=== PATIENT | male | born 1960 | race Caucasian/White ===

== ENCOUNTER 2019-04-19 05:50 | Inpatient (IN) | payer MEDICAID ==
[~2019-04-19] VITALS: Ht 203.2 cm; Wt 159.1 kg
[~2019-04-19 05:50] MED LIST: ASPI81TA44 PO; ATOR10TA87 PO; CLOP75TA33 PO; COU5T PO; FURO20TA4 PO; GLIP10TA11 PO; METO100T7 PO; NITR0.4T51 SL; VALS160T2 PO
[2019-04-19] MEDS ORDERED: vancomycin/NS 1 GM ADD-VANTAGE 250 ML IV ONE (06:20)
[2019-04-19] MEDS ORDERED: TETanus/Pertussis (Acell)/Diphther VAC/PF (Tdap-Adult) 0.5ml syringe IM ONE (06:20)
[2019-04-19] MEDS ORDERED: CefTRIAXone 2gm/D5W 50ml 50 ML IV ONE (06:20)
[2019-04-19 07:39] LABS: BASOPHILS # (AUTO) 0.1 X10'3 (0-0.2); BASOPHILS % (AUTO) 0.9 % (0-1); EOSINOPHILS # (AUTO) 0.1 X10'3 (0-0.9); EOSINOPHILS % (AUTO) 1.4 % (0-6); HEMATOCRIT 45.4 % (42.0-52.0); HEMOGLOBIN 15.4 g/dl (14.0-17.9); LYMPHOCYTES # (AUTO) 0.7 X10'3 (1.1-4.8); LYMPHOCYTES % (AUTO) 7.4 % (21-51); MEAN CORPUSCULAR HEMOGLOBIN 30.5 PG (27.0-31.0); MEAN CORPUSCULAR HGB CONC 33.9 g/dL (33.0-36.5); MEAN CORPUSCULAR VOLUME 90.1 FL (78-98); MEAN PLATELET VOLUME 8.6 FL (7.4-10.4); MONOCYTES # (AUTO) 0.7 X10'3 (0-0.9); MONOCYTES % (AUTO) 7.6 % (2-12); NEUTROPHILS # (AUTO) 7.3 X10'3 (1.8-7.7); NEUTROPHILS % (AUTO) 82.7 % (42-75); PLATELET COUNT 220 X10'3 (140-440); RED BLOOD COUNT 5.04 X10'6 (4.70-6.10); RED CELL DISTRIBUTION WIDTH 15.7 % (11.5-14.5); WHITE BLOOD COUNT 8.9 X10'3 (4.5-11.0)
[2019-04-19 07:45] LABS: ALANINE AMINOTRANSFERASE 21 U/L (12-78); ALBUMIN 3.2 G/DL (3.4-5.0); ALBUMIN/GLOBULIN RATIO 0.7 (1.1-1.5); ALKALINE PHOSPHATASE 116 IU/L (46-116); ANION GAP 11 (8-16); ASPARTATE AMINO TRANSFERASE 13 U/L (10-37); BLOOD UREA NITROGEN 21 MG/DL (7-18); BUN/CREATININE RATIO 11.7 (5.4-32.0); CALCIUM 8.8 MG/DL (8.5-10.1); CHLORIDE 101 MMOL/L (99-107); CREATININE 1.79 MG/DL (0.60-1.10); GLUCOSE 385 MG/DL (70-104); MAGNESIUM 2.1 MG/DL (1.5-2.4); POTASSIUM 4.1 MMOL/L (3.5-5.1); SODIUM 136 MMOL/L (135-145); TOTAL CARBON DIOXIDE 24.5 MMOL/L (24-32); TOTAL PROTEIN 7.8 G/DL (6.4-8.2); eGFR 39 ML/MIN
--- NOTE | 2019-04-19 07:56 | NUR ---
Obtained pictures to wounds on BLE,wound culture obtained to left alejo wound noted with pus,cleansed with ns covered with non aderent dressing,kerlix and sharon bandage.vancomycin running at this time.Patient comfortable.
[2019-04-19 08:06] LABS: BILIRUBIN,TOTAL 0.9 MG/DL (0.1-1.0)
[2019-04-19] MEDS ORDERED: CefTRIAXone/D5W-Rocephin 1gm 50 ML IV SCH (09:00)
[2019-04-19] MEDS ORDERED: morphine 2 MG/ML inj. syringe IV PRN ×2 (09:00)
[2019-04-19] MEDS ORDERED: acetaminophen 325mg tablet PO PRN (09:00)
[2019-04-19] MEDS ORDERED: HYDROcodone/acetaminophen 5mg/325mg tablet PO PRN (09:00)
[2019-04-19] MEDS ORDERED: vancomycin/NS 1 GM ADD-VANTAGE 250 ML IV SCH (09:00)
[2019-04-19] MEDS ORDERED: HYDROcodone/acetaminophen 10/325mg tab PO PRN (09:00)
[2019-04-19] MEDS ORDERED: ondansetron/PF 4mg/2ml inj IV PRN (09:00)
[2019-04-19] MEDS ORDERED: mag hydrox/Alum hydrox/simeth 30ml oral suspension PO PRN (09:00)
[2019-04-19] MEDS ORDERED: magnesium hydroxide 30ml (MOM) UD suspension PO PRN (09:00)
[2019-04-19] MEDS ORDERED: POTA8TAB8 PO (10:35)
[2019-04-19] MEDS ORDERED: ATOR10TA70 PO (10:35)
[2019-04-19] MEDS ORDERED: LOSA100T57 PO (10:35)
[2019-04-19] MEDS ORDERED: FURO40TA4 PO (10:35)
[2019-04-19] MEDS ORDERED: WARF-55 PO (10:35)
[2019-04-19] MEDS ORDERED: CLOP75TA35 PO (10:35)
[2019-04-19] MEDS ORDERED: GLIM4TAB4 PO (10:35)
[2019-04-19] MEDS ORDERED: METO-395 PO (10:35)
[2019-04-19] MEDS ORDERED: AMIO200T61 PO (10:36)
[2019-04-19] MEDS ORDERED: dextrose ORAL solution 15 GM/59 ML bottle PO PRN ×2 (11:00)
[2019-04-19] MEDS ORDERED: dextrose 50%-water 50ml dispensing syringe IV PRN ×2 (11:00)
[2019-04-19] MEDS ORDERED: glucagon, human recombinant 1mg kit SUBCUT PRN (11:00)
[2019-04-19] MEDS ORDERED: MESSAGE TO PHARMACY PO ONE (11:00)
[2019-04-19] MEDS: losartan 50mg tablet PO SCH (11:33)
--- NOTE | 2019-04-19 15:15 | NUR ---
Patient in room [facility]TH[facility] 4011. I have received report from Dimitrios BLAKE and had the opportunity to ask questions and assume patient care.
[2019-04-19 15:45] VITALS: BP 158/79
[2019-04-19 18:00] VITALS: BP 163/83
--- NOTE | 2019-04-19 18:41 | NUR ---
Problems reprioritized. Patient report given, questions answered & plan of care reviewed with Javed BLAKE.
[2019-04-19] MEDS: lactobacillus rhamnosus 10,000 MMU CELLS/CAPSULE PO SCH (19:28)
[2019-04-19] MEDS: amiodarone 200mg tablet PO SCH (19:28)
[2019-04-19] MEDS: potassium chloride 8mEq ER tablet PO SCH (19:28)
[2019-04-19] MEDS: insulin Lispro (HumaLOG) vial - multi-dose SQ SCH (19:34)
[2019-04-19] MEDS ORDERED: warfarin 5mg tablet PO ONE (21:00)
[2019-04-19 22:00] VITALS: BP 157/73
[2019-04-19] MEDS: insulin glargine (Lantus) pen - multi-dose SQ SCH (22:03)
[2019-04-19] MEDS ORDERED: nicotine prolacrilex 2mg gum BC PRN (23:20)
[2019-04-20 06:00] VITALS: BP 176/81
[2019-04-20 07:21] LABS: ALBUMIN 3.1 G/DL (3.4-5.0); ANION GAP 10 (8-16); BLOOD UREA NITROGEN 17 MG/DL (7-18); BUN/CREATININE RATIO 11.1 (5.4-32.0); CALCIUM 8.6 MG/DL (8.5-10.1); CHLORIDE 105 MMOL/L (99-107); CREATININE 1.53 MG/DL (0.60-1.10); GLUCOSE 127 MG/DL (70-104); POTASSIUM 4.5 MMOL/L (3.5-5.1); SODIUM 140 MMOL/L (135-145); TOTAL CARBON DIOXIDE 24.8 MMOL/L (24-32); eGFR 47 ML/MIN
[2019-04-20 07:25] LABS: BASOPHILS # (AUTO) 0.1 X10'3 (0-0.2); BASOPHILS % (AUTO) 0.6 % (0-1); EOSINOPHILS # (AUTO) 0.3 X10'3 (0-0.9); HEMATOCRIT 43.8 % (42.0-52.0); HEMOGLOBIN 14.7 g/dl (14.0-17.9); LYMPHOCYTES % (AUTO) 11.1 % (21-51); MEAN CORPUSCULAR HEMOGLOBIN 30.4 PG (27.0-31.0); MEAN CORPUSCULAR HGB CONC 33.6 g/dL (33.0-36.5); MEAN CORPUSCULAR VOLUME 90.6 FL (78-98); MEAN PLATELET VOLUME 8.2 FL (7.4-10.4); MONOCYTES # (AUTO) 0.7 X10'3 (0-0.9); MONOCYTES % (AUTO) 8.3 % (2-12); NEUTROPHILS # (AUTO) 6.7 X10'3 (1.8-7.7); PLATELET COUNT 218 X10'3 (140-440); RED BLOOD COUNT 4.84 X10'6 (4.70-6.10); RED CELL DISTRIBUTION WIDTH 15.7 % (11.5-14.5); WHITE BLOOD COUNT 8.7 X10'3 (4.5-11.0)
[2019-04-20] MEDS: lactobacillus rhamnosus 10,000 MMU CELLS/CAPSULE PO SCH ×2 (08:52→20:50)
[2019-04-20] MEDS: atorvastatin 10mg tablet PO SCH (08:52)
[2019-04-20] MEDS: furosemide 40mg tablet PO SCH (08:52)
[2019-04-20] MEDS: clopidogrel 75mg tablet PO SCH (08:52)
[2019-04-20] MEDS: amiodarone 200mg tablet PO SCH ×2 (08:53→20:50)
[2019-04-20] MEDS: potassium chloride 8mEq ER tablet PO SCH ×2 (08:53→20:44)
[2019-04-20] MEDS: losartan 50mg tablet PO SCH (08:53)
[2019-04-20] MEDS: metoprolol succinate 25mg (24-HOUR) SR. Tablet PO SCH (08:53)
[2019-04-20] MEDS: CefTRIAXone/D5W-Rocephin 1gm 50 ML IV SCH (08:54)
[2019-04-20] MEDS: insulin Lispro (HumaLOG) vial - multi-dose SQ SCH ×3 (10:45→19:50)
--- NOTE | 2019-04-20 12:17 | NUR ---
DM Consult: A1C 9.5. Pt admit w/ LLE wound s/p fall from WC. A1C 8.1 on December admit this year. Pt declined verbal DM ed; does report only takes glipizide for DM management. Written DM handout w/ RD contact information provided. RD encouraged f/u w/ PCP for better meal coverage given A1C and DX. Pt PO 100% meals. Double proteins TIDWM added; dietary notified. Addendum: 04/20/19 at [address] Amended: Links added.
[2019-04-20] MEDS: metroNIDAZOLE 500mg tablet PO SCH ×2 (14:53→20:50)
[2019-04-20 18:00] VITALS: BP 178/86
[2019-04-20] MEDS ORDERED: warfarin 3mg tablet PO ONE (21:00)
[2019-04-20] MEDS: insulin glargine (Lantus) pen - multi-dose SQ SCH (21:00)
[2019-04-20 22:00] VITALS: BP 169/101
--- NOTE | 2019-04-20 22:24 | NUR ---
REPORT REC'D FROM LOU HYDE. PT HAD PICTURES TAKEN UPON ADMISSION, LESS THAN 24HRS. WOC CONSULT IN PLACE.
[2019-04-21 02:00] VITALS: BP 166/88
[2019-04-21 06:00] VITALS: BP 165/87
--- NOTE | 2019-04-21 06:17 | NUR ---
REPORT GIVEN TO LOU HYDE.
[2019-04-21 06:55] LABS: BASOPHILS # (AUTO) 0.1 X10'3 (0-0.2); BASOPHILS % (AUTO) 1.1 % (0-1); EOSINOPHILS # (AUTO) 0.2 X10'3 (0-0.9); EOSINOPHILS % (AUTO) 2.7 % (0-6); HEMATOCRIT 43.7 % (42.0-52.0); HEMOGLOBIN 14.7 g/dl (14.0-17.9); LYMPHOCYTES % (AUTO) 11.7 % (21-51); MEAN CORPUSCULAR HEMOGLOBIN 30.7 PG (27.0-31.0); MEAN CORPUSCULAR HGB CONC 33.7 g/dL (33.0-36.5); MEAN CORPUSCULAR VOLUME 90.9 FL (78-98); MEAN PLATELET VOLUME 7.9 FL (7.4-10.4); MONOCYTES # (AUTO) 0.8 X10'3 (0-0.9); MONOCYTES % (AUTO) 9.5 % (2-12); NEUTROPHILS # (AUTO) 6.4 X10'3 (1.8-7.7); PLATELET COUNT 216 X10'3 (140-440); RED CELL DISTRIBUTION WIDTH 15.6 % (11.5-14.5); WHITE BLOOD COUNT 8.6 X10'3 (4.5-11.0)
[2019-04-21 07:12] LABS: ANION GAP 11 (8-16); BLOOD UREA NITROGEN 18 MG/DL (7-18); BUN/CREATININE RATIO 11.7 (5.4-32.0); CALCIUM 8.6 MG/DL (8.5-10.1); CHLORIDE 105 MMOL/L (99-107); CREATININE 1.54 MG/DL (0.60-1.10); GLUCOSE 99 MG/DL (70-104); POTASSIUM 3.8 MMOL/L (3.5-5.1); SODIUM 140 MMOL/L (135-145); TOTAL CARBON DIOXIDE 24.1 MMOL/L (24-32); eGFR 47 ML/MIN
[2019-04-21] MEDS: amiodarone 200mg tablet PO SCH ×2 (08:38→19:04)
[2019-04-21] MEDS: clopidogrel 75mg tablet PO SCH (08:38)
[2019-04-21] MEDS: potassium chloride 8mEq ER tablet PO SCH ×2 (08:38→19:04)
[2019-04-21] MEDS: losartan 50mg tablet PO SCH (08:38)
[2019-04-21] MEDS: lactobacillus rhamnosus 10,000 MMU CELLS/CAPSULE PO SCH ×2 (08:38→19:04)
[2019-04-21] MEDS: furosemide 40mg tablet PO SCH (08:38)
[2019-04-21] MEDS: metroNIDAZOLE 500mg tablet PO SCH ×2 (08:38→19:04)
[2019-04-21] MEDS: CefTRIAXone/D5W-Rocephin 1gm 50 ML IV SCH (08:38)
[2019-04-21] MEDS: atorvastatin 10mg tablet PO SCH (08:38)
[2019-04-21] MEDS: metoprolol succinate 25mg (24-HOUR) SR. Tablet PO SCH (08:39)
[2019-04-21] MEDS ORDERED: VANCOMYCIN LEVEL IV ONE (09:30)
[2019-04-21] MEDS: insulin Lispro (HumaLOG) vial - multi-dose SQ SCH ×2 (13:54→19:07)
--- NOTE | 2019-04-21 14:51 | NUR ---
WOUND INFECTION EDUCATION PROVIDED BY WOUND CARE 1. Patient instructed to call their primary doctor, or go the ED immediately if any of the following symptoms occur: * Increased pain in wound * Increase in drainage from the wound * Redness in the skin surrounding the wound * Warmth in the skin surrounding the wound * Bleeding from the wound * Temperature of 101 or greater 2. If any of these occur while in the hospital tell a nurse immediately. DIABETIC FOOT CARE EDUCATION PROVIDED BY WOUND CARE * Wash your feet daily with lukewarm water and soap. * Dry your feet well, especially between the toes. * Keep the skin moisturized with lotion, but do not apply it between the toes. * Check your feet for blisters, cuts or sores. * Use an emery board to shape your toenails even with the ends of your toes. * Change daily into clean, soft socks or stockings, not too big or too small. * Keep your feet warm and dry. * Preferably wear special padded socks and shoes that fit well. * Never walk barefoot indoors or outdoors. * Examine your shoes everyday for cracks, aria, nails or anything that could hurt your feet. * Tell your doctor if you find any of these problems or have any concerns after examining your feet. Addendum: 04/21/19 at 1452 by Debi Talbert RN Amended: Links added.
[2019-04-21 18:00] VITALS: BP 155/93
--- NOTE | 2019-04-21 18:15 | NUR ---
Problems reprioritized. Patient report given, questions answered & plan of care reviewed with LOU Kahn.
--- NOTE | 2019-04-21 18:30 | NUR ---
Problems reprioritized. Patient report given, questions answered & plan of care reviewed with LOU Kahn.
--- NOTE | 2019-04-21 18:31 | NUR ---
Patient in room [facility]TH[facility] 4011. I have received report from Bailee BLAKE and had the opportunity to ask questions and assume patient care.
--- NOTE | 2019-04-21 18:37 | NUR ---
Paged Dr Forrester: ESR 28 elevated
[2019-04-21] MEDS ORDERED: warfarin 5mg tablet PO ONE (21:00)
[2019-04-21] MEDS: insulin glargine (Lantus) pen - multi-dose SQ SCH (21:08)
[2019-04-21 22:00] VITALS: BP 182/108
[2019-04-22 06:00] VITALS: BP 192/110
--- NOTE | 2019-04-22 06:00 | NUR ---
Patient in room [facility] 4011. I have received report from and had the opportunity to ask questions and assume patient care LOU Kahn.
[2019-04-22 06:05] LABS: BASOPHILS # (AUTO) 0.1 X10'3 (0-0.2); BASOPHILS % (AUTO) 1.3 % (0-1); EOSINOPHILS # (AUTO) 0.2 X10'3 (0-0.9); EOSINOPHILS % (AUTO) 3.5 % (0-6); HEMATOCRIT 43.6 % (42.0-52.0); HEMOGLOBIN 14.8 g/dl (14.0-17.9); LYMPHOCYTES # (AUTO) 0.9 X10'3 (1.1-4.8); LYMPHOCYTES % (AUTO) 13.6 % (21-51); MEAN CORPUSCULAR HEMOGLOBIN 30.8 PG (27.0-31.0); MEAN CORPUSCULAR VOLUME 90.5 FL (78-98); MONOCYTES # (AUTO) 0.7 X10'3 (0-0.9); MONOCYTES % (AUTO) 9.6 % (2-12); PLATELET COUNT 214 X10'3 (140-440); RED BLOOD COUNT 4.82 X10'6 (4.70-6.10)
[2019-04-22 06:24] LABS: ANION GAP 12 (8-16); BLOOD UREA NITROGEN 22 MG/DL (7-18); BUN/CREATININE RATIO 14.1 (5.4-32.0); CALCIUM 8.2 MG/DL (8.5-10.1); CHLORIDE 106 MMOL/L (99-107); CREATININE 1.56 MG/DL (0.60-1.10); GLUCOSE 105 MG/DL (70-104); POTASSIUM 3.8 MMOL/L (3.5-5.1); SODIUM 138 MMOL/L (135-145); TOTAL CARBON DIOXIDE 20.1 MMOL/L (24-32); eGFR 46 ML/MIN
--- NOTE | 2019-04-22 06:31 | NUR ---
Problems reprioritized. Patient report given, questions answered & plan of care reviewed with Bailee BLAKE.
--- NOTE | 2019-04-22 06:43 | NUR ---
PAGED DR BROWER MESSAGE: Pt [place] 4011B @ 5690 pt had BP 182/108. HR 60. A little over baseline. Asymptomatic. Has pacer and HX of HTN, CHF, angioplasty, and RI. Can you order PRN anti-hypertensive meds? - Criss [phone]
[2019-04-22] MEDS ORDERED: amLODIPine 5mg tablet PO SCH (06:45)
[2019-04-22] MEDS ORDERED: hydrALAZINE 20mg/ml inj. IV PRN (06:45)
[2019-04-22] MEDS: clopidogrel 75mg tablet PO SCH (07:49)
[2019-04-22] MEDS: metroNIDAZOLE 500mg tablet PO SCH (07:50)
[2019-04-22] MEDS: atorvastatin 10mg tablet PO SCH (07:50)
[2019-04-22] MEDS: losartan 50mg tablet PO SCH (07:50)
[2019-04-22] MEDS: potassium chloride 8mEq ER tablet PO SCH (07:51)
[2019-04-22] MEDS: amiodarone 200mg tablet PO SCH (07:51)
[2019-04-22] MEDS: furosemide 40mg tablet PO SCH (07:51)
[2019-04-22] MEDS: CefTRIAXone/D5W-Rocephin 1gm 50 ML IV SCH (07:52)
[2019-04-22] MEDS: metoprolol succinate 25mg (24-HOUR) SR. Tablet PO SCH (07:53)
[2019-04-22] MEDS: lactobacillus rhamnosus 10,000 MMU CELLS/CAPSULE PO SCH (07:55)
[2019-04-22] MEDS ORDERED: METR500T PO (08:09)
[2019-04-22] MEDS ORDERED: LEVO500T2 PO (08:09)
[2019-04-22 10:00] VITALS: BP 192/97
[2019-04-22] MEDS: insulin Lispro (HumaLOG) vial - multi-dose SQ SCH (13:49)
--- NOTE | 2019-04-22 15:07 | NUR ---
PICTURES TAKEN FOR DISCHARGE OF WOUNDS. Addendum: 04/22/19 at 1508 by Clementine Joe RN Amended: Links added.
--- NOTE | 2019-04-22 17:15 | NUR ---
DISCHARGE: Pt DC VSS, Denies pain, SOB, resp distress, N/V. [facility] was faxed info from case management associate. Will follow up w/pt. pt encouraged to follow up w/primary provider r/t referrals and continuation of care. pt escorted SINA by [facility] staff in . pt transferred into personal vehicle safely. All necessary DC documents signed, copied released to pt. Pt thanked [facility] staff for his care.
[2019-04-22 18:37] VITALS: BP 159/87
[2019-04-22] MEDS ORDERED: warfarin 5mg tablet PO ONE (21:00)
== END 2019-04-22 17:00 | disposition home health service (06) | DRG 383 ==
LOC: ER 05:50 → ED HOLD 09:05 → EDBEDREQ 14:45 → ORTHO 4S 15:45
PROVIDERS: ADMIT Internal Medicine; ATTEND Internal Medicine
DX: L03.116 Cellulitis of left lower limb (principal); E11.22 Type 2 diabetes mellitus with diabetic chronic kidney disease; N17.9 Acute kidney failure, unspecified; E87.2 Acidosis; E11.65 Type 2 diabetes mellitus with hyperglycemia; E66.01 Morbid (severe) obesity due to excess calories; I49.5 Sick sinus syndrome; N18.3 Chronic kidney disease, stage 3 (moderate); I50.9 Heart failure, unspecified; I13.0 Hypertensive heart and chronic kidney disease with heart failure and stage 1 through stage 4 chronic kidney disease, or unspecified chronic kidney disease; E78.5 Hyperlipidemia, unspecified; F12.90 Cannabis use, unspecified, uncomplicated; F17.210 Nicotine dependence, cigarettes, uncomplicated; B95.61 Methicillin susceptible Staphylococcus aureus infection as the cause of diseases classified elsewhere; B96.1 Klebsiella pneumoniae [K. pneumoniae] as the cause of diseases classified elsewhere; I25.10 Atherosclerotic heart disease of native coronary artery without angina pectoris; I48.0 Paroxysmal atrial fibrillation; Z79.01 Long term (current) use of anticoagulants; Z88.8 Allergy status to other drugs, medicaments and biological substances; Z79.02 Long term (current) use of antithrombotics/antiplatelets; Z79.84 Long term (current) use of oral hypoglycemic drugs; Z83.3 Family history of diabetes mellitus; Z79.82 Long term (current) use of aspirin; Z56.0 Unemployment, unspecified; Z86.718 Personal history of other venous thrombosis and embolism; Z89.421 Acquired absence of other right toe(s); I25.2 Old myocardial infarction; Z68.38 Body mass index [BMI] 38.0-38.9, adult
CPT/HCPCS: 36415; 71045; 73590; 80048; 80053; 80202; 82948; 83036; 83605; 83735; 83880; 84145; 85025; 85610; 85651; 87040; 87070; 87077; 87081; 87186; 90471; 93005; 96365; 96368; 99285; G0378; J0696; J1815; J3370; J3490

== ENCOUNTER 2023-05-31 13:07 | Outpatient (CLI) | payer MEDICAID ==
[~2023-05-31 13:07] MED LIST changes: +AMI200T PO; -ASPI81TA44 PO; +ATOR10TA70 PO; -ATOR10TA87 PO; -CLOP75TA33 PO; +CLOP75TA34 PO; -COU5T PO; -FURO20TA4 PO; +FURO40TA4 PO; +GLIM4TAB7 PO; -GLIP10TA11 PO; +LOSA100T58 PO; +METO-395 PO; -METO100T7 PO; +METR500T PO; -NITR0.4T51 SL; +POTA8TAB8 PO; -VALS160T2 PO; +WARF-55 PO
== END 2023-05-31 23:59 | disposition home or self-care (01) ==
LOC: CARD DIAG 13:07
PROVIDERS: ATTEND Internal Medicine Interventional Cardiology
DX: I08.0 Rheumatic disorders of both mitral and aortic valves (principal); I50.22 Chronic systolic (congestive) heart failure
CPT/HCPCS: 93308